=== PATIENT | female | born 1995 | race Two or more races ===

== ENCOUNTER 2024-12-18 13:04 | Outpatient (AMB) | payer MEDICAID, SELFPAY ==
--- NOTE | 2024-12-18 13:15 | AMB.OBINITIA ---
Vital Signs 12/18/24 13:19 Height 1.52 m Height Method Stated Weight 63.673 kg Weight Measurement Method Standing Scale BMI 27.3 BP 107/71 Blood Pressure Source Automatic Cuff Blood Pressure Location Left Upper Arm Position Sitting Respiration 14 Pulse 78 Pulse Source Monitor Temp 97.6 F Temp Source Oral Pulse Oximetry (%) 98 Oxygen Delivery Method Room Air Allergies/Home Meds Allergies & Medications Allergies No Known Allergies Allergy (Verified 12/18/24 13:20) Medication Reconciliation vit no.95-ferrous fumarate 28 mg-folic acid 800 mcg tablet () 1 tab PO QDAY 05/20/19 [History Confirmed 12/18/24] Intake Visit Data Collection New Patient or Established: Established Patient (seen at [facility] within 3 years) Reason for Visit:: CARE TRANSFER Seen by Clinical Staff ONLY (RN/MA): No Band Director Required: No Do You Feel Safe at Home: Yes Authorities Contacted: N/A PCP or OBGYN visit in last 3 months: Yes Hx Now: Yes Are you currently on any form of Control: No Last menstrual period: 06/26/24 Pain Present Currently: No Pain Scale Used: Sparrow-Hodges/Numerical Pain scale:: 0 Smoking Status Smoking Status: Former smoker Questionnaires Covid-19 Vaccine Questionnaire Has patient been vacinated for Covid-19 Have you been vacinated for Covid-19: No PHQ-9 PHQ-2 Over the last 2 weeks, how often have you been bothered by any of the following problems? 1. Little interest or pleasure in doing things: not at all 2. Feeling down, depressed, or hopeless: not at all Total score: 0 PHQ-9 3. Trouble falling or staying asleep, or sleeping too much: Not at all 4. Feeling tired or having little energy: Not at all 5. Poor appetite or overeating: Not at all 6. Feeling bad about yourself - or that you are a failure or have let yourself or your family down: Not at all 7. Trouble concentrating on things, such as reading the newspaper or watching television: Not at all 8. Moving or speaking so slowly that other people could have noticed? - Or the opposite - being so fidgety or restless that you have been moving around a lot more than usual: not at all 9. Thoughts that you would be better off or of hurting yourself in some way: Not at all Total score: 0 Source: Developed by Drs. Martin Cheatham, Jackie Roger, Quirino Gautam and colleagues, with an educational nicolas from [employer]. 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 at Home: Yes Past Medical History Past Medical History Have you ever been diagnosed with any of the following: Neurological Problems Cerebrovascular Accident (CVA): No Transient Ischemic Attacks (TIA): No Dementia: No Alzheimer's Disease: No Parkinson's Disease: No Seizures: No Cardiology Problems Myocardial Infarction: No Cardiac Arrhythmia: No Atrial Fibrillation: No Angina: No Heart Murmur: No Congestive Heart Failure: No Respiratory Problems Chronic Obstructive Pulmonary Disease (COPD): No Asthma: No Bronchitis: No Tuberculosis: No Hx Cough: No Cough: No Wheezing: No Chest Deformities: No Stomache/Intestinal Problems Liver Cancer: No Hepatitis: No Cirrhosis: No Pancreatic Cancer: No Crohn's Disease: No Obstructive Bowel: No Hiatal Hernia: No Genital/Urinary Problems Chronic Kidney Disease: No Renal Disease: No Kidney Stones: No Reproductive Problems Breast Cancer: No Endometriosis: No Fibroids: No Previous Pregnancies: Yes Syphilis: Yes Musculoskeletal Problems Muscular Dystrophy: No Myasthenia Gravis: No Marfan's Syndrome: No Bone Cancer: No Arthritis: No Head,Eye,Nose,Throat Problems Cataracts: No Glaucoma: No Blind: No Retinal Detachment: No Macular Degeneration: No Endocrine Problems Diabetes Mellitus Type 1: No Diabetes Mellitus Type 2: No Sunderland's Disease: No Blood Problems Anemia: No Leukemia: No Hemophilia: No Thalassemia: No Sickle Cell Disease: No Clotting Problems: No Psychologic Problems Depression: No Anxiety: No Behavior Problems: No Self-Mutilation: No Other Problems Hospitalization: Yes (LABOR ONLY) Down Syndrome: No Developmental Delay: No Falls: No Blood Transfusions: No Anesthesia Reactions: No Organ Transplant: No MRSA: No Chicken Pox: No Clostridium Difficile: No Cancer: No Surgical History Angioplasty: No Appendectomy: No Bariatric Surgery: No Breast Surgery: No Pacemaker: No History of Present Illness HPI Narrative 29-year-old 6 para 5 for first visit at [facility] OB clinic. Patient is been followed at [facility] for care so far. [facility]. Last menstrual period was June 30 2024. This gives a due date of April 04, 2025. Patient's first ultrasound was on September 30. She was 13 weeks 1 and this confirmed dates. Patient has a history of marijuana use with the . Patient also had a positive RPR with tPA positive her titer was 1-2. And patient has been treated with Bicillin 2.4 x 3. Partner was treated as well and patient has been compliant with safe sex practices. Patient is A+, antibody screen negative. HIV was negative. Hepatitis B was negative. Hep C negative. Gonorrhea and Chlamydia were negative. And patient's platelets were 350. Denies labor complaints at this time. And reports movement OB Initial Visit OB Flowsheet OB Flowsheet Initial Weight: Not Recorded Date <del>?</del> EGA Weight Edema CTX Effacement BP Fundal ht Pres Dilation Effacement Station Visit Note Alb Glu FHR Mov 12/18/24 <del>?</del> 24w 3d 63.673 kg absent absent 107/71 29-year-old 6 para 5 for first visit today at [facility] medical clinic. Patient is 24 weeks and 6 days by a 13-week ultrasound in September and . She has a follow-up MFM appointment January 10. Reports good movement. Denies symptoms of labor. No OB complaints at this time. She is taking her vitamins. Ordered third trimester labs. Keep appointment with MFM. Will call for sono results from [facility] increase fluids and labor precautions discussed 29-year-old 6 para 5 for first visit today at [facility] medical clinic. Patient is 24 weeks and 6 days by a 13-week ultrasound in September and . She has a follow-up MFM appointment January 10. Reports good movement. Denies symptoms of labor. No OB complaints at this time. She is taking her vitamins. Ordered third trimester labs. Keep appointment with MFM. Will call for sono results from [facility] increase fluids and labor precautions discussed, rpr with 3rd tri labs 151 active Menstrual History Menstrual reliability: definite Flow: normal Menstrual regularity: regular Monthly: Yes Age at menarche: 14 On control pills at conception: No Associated symptoms (LMP): Reports nausea, vomiting, fatigue and breast tenderness OB History : 6 Para: 4 Hx Total # of Abortions (Spontaneous & Elective): 1 # of Living Children: 4 Delivery History 1st : Child's name: MADIE date: 10/26/12 sex: male Gestational age at delivery (weeks): 41 Delivery type: vaginal Delivery complications: NO History of depression before or after : No 2nd : Child's name: VELIA date: 02/26/15 sex: male Gestational age at delivery (weeks): 39 Delivery type: vaginal Delivery complications: NO History of depression before or after : No 3rd : Child's name: MJ date: 08/30/17 sex: male Gestational age at delivery (weeks): 38 Delivery type: vaginal Delivery complications: NO History of depression before or after : No 4th : Child's name: BROOK date: 06/21/19 sex: male Gestational age at delivery (weeks): 38 Delivery type: vaginal Delivery complications: NO History of depression before or after : No Infection History & Risk Evaluation History of STDs: syphilis (patient and partner treated x 3) Genetic Screening & History Genetic Screening/Teratology Counseling - Includes patient, baby's father, or anyone in either family with: 1. Patient's age 35 years or older as of estimated date of delivery: No 2. Thalassemia (Thai, Iranian, Mediterranean, or Background); MCV less than 80: No 3. Neural Tube Defect (Meningomyelocele, Spina Bifida, or Anencephaly): No 4. Congenital Heart Defect: No 5. Down Syndrome: No 6. Jayy-Sachs (Ashkenazi Holiness, Cajun, Ecuadorean Lehr): No 7. Joesph Disease (Ashkenazi Holiness): No 8. Familial Dysautonomia (Ashkenazi Holiness): No 9. Sickle Cell Disease or Trait (): No 10. Hemophilia or other blood disorders: No 11. Muscular Dystrophy: No 12. Cystic Fibrosis: No 13. Yong's Chorea: No 14. Mental Retardation/Autism: No 15. Other inherited genetic or chromosomal disorder: No 16. Maternal Metabolic Disorder (EG,TYPE 1 Diabetes, PKU): No 17. Patient or baby's father had a child with defects not listed above: No 18. Recurrent loss or a stillbirth: No 19. Medications (including supplements, vitamins, herbs or otc drugs)/illicit/recreational drugs/alcohol since last menstrual period: No 20. Any other: No Infection History 1. Live with someone with TB or exposed to TB: No 2. Rash or viral illness since last menstrual period: No 3. Hepatitis B,C: No 4. History of STD: syphilis Other (see comments) Source: [employer] Review of Systems Review of Systems Systems Reviewed: All systems reviewed, normal except as documented Constitutional Constitutional: Reports fatigue Gastrointestinal Gastrointestinal: Reports nausea and Reports vomiting Endocrine Endocrine: Reports fatigue Exam General Limitations: no limitations General Appearance: alert, in no apparent distress, comfortable, cooperative, healthy appearing, well developed and well groomed Head Head exam: atraumatic, normocephalic and normal inspection Chest Chest inspection: Present normal inspection and symmetric chest wall rise Resp Respiratory exam: Present normal lung sounds bilaterally Card Cardiovascular exam: Present regular rate, normal rhythm and normal heart sounds Abdominal Abdominal exam: Present soft and normal bowel sounds Psych Psychiatric exam: Present normal affect and normal mood Results Objective Laboratory: urine dip negative protien, neg wbc, neg nitrites Assessment & Plan Diagnosis / Problem List (1) Encounter for supervision of other normal , second trimester: Status: Acute Plan Ordered third trimester labs and RPR. Continue vitamins. Discussed labor precautions. Keep appointment with maternal- medicine for January 10. Increase fluids. Discussed regular activity and diet. Return in 4 weeks OB check Additional Plan Follow Up: 4 Weeks (obc 4 week) Office Procedures OB Clinic LOC & Office Proc's Nursing/Assessment Patient Status: Established Patient OB Clinic Nursing Assessment: Medication Reconciliation, Update PMH in EMR and Vital Signs OB Clinic Coordination of Care: Complex Care and Chronic Disease 1-5, Consent,records obtained, informed consent, Education Simp Pt/Fam, Lab and Imaging orders, Results/Orders obtained and Staff clarify orders Special Needs: Heart tones Miscellaneous Interventions: Blood/Urine Collection Established Patient Charge Established Patient Point Assignment: 165 Established Patient Point Charge: EP Level 5 (160-above)
[2024-12-18 13:19] VITALS: BP 107/71; PULSE 78; RESP 14; TEMP 36.4; O2SAT 98; BMI 27.3
== END 2024-12-18 13:27 | disposition home or self-care (01) ==
LOC: HODSOBC 13:04
PROVIDERS: Supervising Provider Obstetrics & Gynecology; Visit Provider Advanced Practice Midwife
DX: O09.42 Supervision of pregnancy with grand multiparity, second trimester (principal); Z3A.24 24 weeks gestation of pregnancy; Z87.891 Personal history of nicotine dependence
CPT/HCPCS: 99214; 99215; G0463

== ENCOUNTER 2025-01-15 13:03 | Outpatient (AMB) | payer MEDICAID, SELFPAY ==
[2025-01-15 13:12] VITALS: BP 100/64; PULSE 85; RESP 16; TEMP 36.8; O2SAT 97; BMI 27.4
--- NOTE | 2025-01-15 13:12 | AMB.OBVISIT ---
Vital Signs 01/15/25 13:12 Height 1.52 m Height Method Stated Weight 63.503 kg Weight Measurement Method Standing Scale BMI 27.4 BP 100/64 Blood Pressure Source Automatic Cuff Blood Pressure Location Right Upper Arm Position Sitting Respiration 16 Pulse 85 Pulse Source Monitor Temp 98.2 F Temp Source Oral Pulse Oximetry (%) 97 Oxygen Delivery Method Room Air Allergies/Home Meds Allergies & Medications Allergies No Known Allergies Allergy (Verified 01/15/25 13:13) Medication Reconciliation vit no.95-ferrous fumarate 28 mg-folic acid 800 mcg tablet () 1 tab PO QDAY 05/20/19 [History Confirmed 01/15/25] Intake Visit Data Collection New Patient or Established: Established Patient (seen at [facility] within 3 years) Reason for Visit:: CARE Seen by Clinical Staff ONLY (RN/MA): No Dental Biller Required: No Do You Feel Safe at Home: Yes Authorities Contacted: N/A PCP or OBGYN visit in last 3 months: Yes Hx Now: Yes Are you currently on any form of Control: No Pain Present Currently: Yes Pain Location: Abdomen (LOWER ABDOMEN) Pain Scale Used: Sparrow-Hodges/Numerical Pain scale:: 7 Smoking Status Smoking Status: Former smoker Questionnaires Covid-19 Vaccine Questionnaire Has patient been vacinated for Covid-19 Have you been vacinated for Covid-19: No PHQ-9 PHQ-2 Over the last 2 weeks, how often have you been bothered by any of the following problems? 1. Little interest or pleasure in doing things: not at all 2. Feeling down, depressed, or hopeless: not at all Total score: 0 PHQ-9 3. Trouble falling or staying asleep, or sleeping too much: Not at all 4. Feeling tired or having little energy: Not at all 5. Poor appetite or overeating: Not at all 6. Feeling bad about yourself - or that you are a failure or have let yourself or your family down: Not at all 7. Trouble concentrating on things, such as reading the newspaper or watching television: Not at all 8. Moving or speaking so slowly that other people could have noticed? - Or the opposite - being so fidgety or restless that you have been moving around a lot more than usual: not at all 9. Thoughts that you would be better off or of hurting yourself in some way: Not at all Total score: 0 Source: Developed by Drs. Martin Cheatham, Jackie Roger, Quirino Gautam and colleagues, with an educational nicolas from [employer]. 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 at Home: Yes BRIM IRONER HAND: Past Medical History Past Medical History: No Hx Neurological Disorders, No Hx Breast Cancer, No Hx Cardiac Disorders, No Hx Cancer, No Hx Blood Disorders, No Hx Anemia, No Hx Gastrointestinal Disorders, No Hx Renal Disease, No Hx Diabetes Mellitus Type 1 and No Hx Diabetes Mellitus Type 2 Care OB Visit Log OB Flowsheet Initial Weight: Not Recorded Date <del>?</del> EGA Weight Edema CTX Effacement BP Fundal ht Pres Dilation Effacement Station Visit Note Alb Glu FHR Mov 12/18/24 <del>?</del> 24w 3d 63.673 kg absent absent 107/71 29-year-old 6 para 5 for first visit today at [facility] medical clinic. Patient is 24 weeks and 6 days by a 13-week ultrasound in September and . She has a follow-up MFM appointment January 10. Reports good movement. Denies symptoms of labor. No OB complaints at this time. She is taking her vitamins. Ordered third trimester labs. Keep appointment with MFM. Will call for sono results from [facility] increase fluids and labor precautions discussed 29-year-old 6 para 5 for first visit today at [facility] medical clinic. Patient is 24 weeks and 6 days by a 13-week ultrasound in September and . She has a follow-up MFM appointment January 10. Reports good movement. Denies symptoms of labor. No OB complaints at this time. She is taking her vitamins. Ordered third trimester labs. Keep appointment with MFM. Will call for sono results from [facility] increase fluids and labor precautions discussed, rpr with 3rd tri labs 151 active 05/14/25 <del>?</del> 28w 3d 63.503 kg absent absent 100/64 25 29 yo for OBC and f/u on mfm results. reports good movement. no c/o labor. tiki has not done 3rd tri labs, but will do them today. MFM sono 01/13 showed fetus frowing in 6th %. abdomen was over 10th%. Doppler study was not normal.f/u with MFM 02/17/25. patient was also schedule for 02/24. PLAN: keep MFM appointment 02/17 for dopplers, schedule bi week NST/BPP, get 3rd tri lab with RPR, discuss PTL precaution and fkc bid. continue PNV, schedule with OB for management 135 active BRO Calculator Estimated Delivery Date Method Current WG Current Estimate 04/06/25 Ultrasound #1 28w 3d Office Procedures OB Clinic LOC & Office Proc's Nursing/Assessment Patient Status: Established Patient OB Clinic Nursing Assessment: Medication Reconciliation, Update PMH in EMR and Vital Signs OB Clinic Coordination of Care: Complex Care and Chronic Disease 1-5, Consent,records obtained, informed consent, Education Simp Pt/Fam, Lab and Imaging orders, Results/Orders obtained and Staff clarify orders Special Needs: Heart tones Miscellaneous Interventions: Blood/Urine Collection Established Patient Charge Established Patient Point Assignment: 165 Established Patient Point Charge: EP Level 5 (160-above) Assessment & Plan Diagnosis / Problem List (1) Maternal care for other known or suspected poor growth, third trimester, not applicable or unspecified: Status: Acute (2) High risk case management patient in third trimester: Status: Acute Plan fkc bid, continue PNV, increase fluid, start bi-weekly nst/bpp. keep MFM appointment for 02/17/25 dopplers, 3rd tri labs today. f/u with OB 2 week for medical magement/OBC Additional Plan Follow Up: 2 Weeks (obc)
[2025-01-15 16:31] LABS: Bilirubin,Urine Clinitek Negative (Negative); Blood,Urine Clinitek Negative (Negative); Glucose, Urine Clinitek Negative (Negative); Ketones,Urine Clinitek Negative (Negative); Leukocyte Esterase,Urine Clin 1+ (Negative); Nitrite,Urine Clinitek Negative (Negative); Protein,Urine Clinitek 1+ (Neg - Trace)
== END 2025-01-15 14:00 | disposition home or self-care (01) ==
LOC: HODSOBC 13:03
PROVIDERS: Supervising Provider Advanced Practice Midwife; Visit Provider Advanced Practice Midwife
DX: O09.43 Supervision of pregnancy with grand multiparity, third trimester (principal); O09.893 Supervision of other high risk pregnancies, third trimester; O36.5930 Maternal care for other known or suspected poor fetal growth, third trimester, not applicable or unspecified; Z3A.28 28 weeks gestation of pregnancy; Z87.891 Personal history of nicotine dependence
CPT/HCPCS: 81001; 99215; G0463

== ENCOUNTER → 2025-01-15 | Outpatient (CLI) | payer MEDICAID, SELFPAY ==
[2025-01-15 16:47] LABS: Basophils % (Auto) 0 % (0-2.5); Eosinophils # (Auto) 0.2 Thou/mm3 (0.0-0.5); Eosinophils % (Auto) 2 % (0-10); Hematocrit 34.4 % (36.0-46.0); Hemoglobin 12.2 g/dL (12.0-16.0); Immature Granulocytes % (Auto) 1 % (0-0); Immature Granulocytes Auto 0.09 Thou/mm3 (0.00-0.00); Lymphocytes # (Auto) 1.8 Thou/mm3 (1.0-4.8); Lymphocytes % (Auto) 17 % (10-50); Mean Corpuscular HGB Conc 35.5 g/dl (31.0-37.0); Mean Corpuscular Hemoglobin 31.8 pg (25.0-35.0); Mean Corpuscular Volume 90 fL (80-100); Monocytes # (Auto) 0.8 Thou/mm3 (0.0-0.8); Monocytes % (Auto) 7 % (0-12); Neutrophils % (Auto) 73 % (37-80); Nucleated Red Blood Cell % 0 /100 WBC (0); Platelet Count 283 Thou/mm3 (140-440); RDW Standard Deviation 42.2 fL (36.4-46.3); Red Blood Count 3.84 Miln/mm3 (4.00-5.20); White Blood Count 10.9 Thou/mm3 (3.6-11.0)
[2025-01-15 16:56] LABS: Glucose,1 Hour PP 50gm Dose 125 mg/dL (80-140)
[2025-01-15 17:06] LABS: Glucose Estimated Average 80 mg/dL (80-131); Hemoglobin A1C 4.4 % Hgb (4.8-6.0)
[2025-01-15 17:19] LABS: Syphilis Reactive (Nonreactive)
[2025-01-15 17:20] LABS: MHATP/TP-PA* See Sep Rpt
== END | disposition home or self-care (01) ==
LOC: COPL 13:50
PROVIDERS: PCP Family Medicine; Referring Provider Advanced Practice Midwife; Visit Provider Advanced Practice Midwife
DX: O24.410 Gestational diabetes mellitus in pregnancy, diet controlled (principal)
CPT/HCPCS: 36415; 82950; 83036; 85025; 86780

== ENCOUNTER 2025-01-20 09:25 | Outpatient (RCR) | payer MEDICAID, SELFPAY ==
--- NOTE | 2025-01-20 09:43 | XR_ITS ---
Examination: Biophysical profile, ultrasound Date and time of exam: January 20, 2025 0955 hours INDICATIONS: High risk , diagnosis poor growth Technique: Multiple transabdominal sonographic images of the pelvis abdomen obtained. Attention is directed to the breathing movement, gross body movement, amniotic fluid volume and tone. Findings: Amniotic fluid index 8.8 cm Total biophysical profile is 8 of 8. breathing movement is 2. Gross body movement is 2. tone is 2. Qualitative amniotic fluid volume is 2 Impression: Biophysical profile is 8 of 8.
[2025-01-20 10:55] VITALS: BP 110/59; PULSE 80; RESP 16; TEMP 36.7
== END 2025-01-20 23:59 | disposition home or self-care (01) ==
LOC: S4S1 09:25
PROVIDERS: Referring Provider Advanced Practice Midwife; Visit Provider Advanced Practice Midwife
DX: O09.93 Supervision of high risk pregnancy, unspecified, third trimester (principal); O36.5930 Maternal care for other known or suspected poor fetal growth, third trimester, not applicable or unspecified; Z3A.29 29 weeks gestation of pregnancy
CPT/HCPCS: 59025; 76819

== ENCOUNTER 2025-01-29 08:59 | Outpatient (AMB) | payer MEDICAID, SELFPAY ==
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
[2025-01-29 09:21] VITALS: BP 107/69; PULSE 75; RESP 15; TEMP 36.4; O2SAT 99; BMI 27.9
== END 2025-01-29 09:38 | disposition home or self-care (01) ==
LOC: HODSOBC 08:59
PROVIDERS: Supervising Provider Advanced Practice Midwife; Visit Provider Advanced Practice Midwife
DX: O09.43 Supervision of pregnancy with grand multiparity, third trimester (principal); O09.893 Supervision of other high risk pregnancies, third trimester; O36.5930 Maternal care for other known or suspected poor fetal growth, third trimester, not applicable or unspecified; Z3A.30 30 weeks gestation of pregnancy; Z23 Encounter for immunization
CPT/HCPCS: 90471; 90715; 99214; G0463

== ENCOUNTER 2025-02-13 09:53 | Outpatient (AMB) | payer MEDICAID, SELFPAY ==
[2025-02-13 10:16] VITALS: BP 109/72; PULSE 84; RESP 17; TEMP 36.7; O2SAT 98; BMI 28.2
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
== END 2025-02-13 10:52 | disposition home or self-care (01) ==
LOC: HODSOBC 09:53
PROVIDERS: Supervising Provider Advanced Practice Midwife; Visit Provider Advanced Practice Midwife
DX: O09.893 Supervision of other high risk pregnancies, third trimester (principal); O36.5930 Maternal care for other known or suspected poor fetal growth, third trimester, not applicable or unspecified; Z3A.32 32 weeks gestation of pregnancy; Z87.891 Personal history of nicotine dependence
CPT/HCPCS: 99213; G0463

== ENCOUNTER 2025-02-17 04:04 | Observation (INO) | payer MEDICAID, SELFPAY ==
[2025-02-17] VITALS (23 sets, daily range): BP systolic 121; BP diastolic 75; PULSE 75–104; RESP 18; TEMP 36.3; O2SAT 88–100; BMI 28.5
[2025-02-17 05:22] LABS: ROM Kit Lot # 578010271; ROM Swab Mixed By: DURAJ; Rupture of Fetal Membranes Negative (Negative); Swb Mxed in Solvent 1 min? Yes
[2025-02-17 05:46] LABS: FFN Specimen Descripton Other
[2025-02-17 05:47] LABS: Fetal Fibronectin Negative (Negative)
[2025-02-17 06:23] LABS: Collection Type, Urine Clean Catch
[2025-02-17] MEDS: guaiFENesin/DM 10 ML UDC PO (06:23)
[2025-02-17] MEDS: AZITHROMYCIN 250 MG TABLET 500 MG PO (06:24)
[2025-02-17 06:58] LABS: Bacteria,Urine 1+; Bilirubin,Urine Negative (Negative); Blood,Urine 1+ (Negative); Clarity,Urine Clear (Clear/Hazy); Color,Urine Yellow (Lt Yel-Yel); Glucose, Urine Negative (Negative); Ketones,Urine Negative (Negative); Leukocyte Esterase,Urine Positive (Negative); Nitrite,Urine Negative (Negative); PH,Urine 6.5 (5.0-7.0); Protein,Urine Negative (Neg - Trace); RBC,Urine 26 /hpf (0-3); Specific Gravity,Urine 1.018 (1.001-1.035); Squamous Epithelial Cell,Urine 4 /hpf (0-5); WBC,Urine 4 /hpf (0-5)
[2025-02-17 07:15] LABS: Culture Indicated,Urine Yes
== END 2025-02-17 07:05 | disposition home or self-care (01) ==
PROVIDERS: Admitting Provider Advanced Practice Midwife; Visit Provider Specialist
DX: O47.03 False labor before 37 completed weeks of gestation, third trimester (principal); Z3A.33 33 weeks gestation of pregnancy; O26.893 Other specified pregnancy related conditions, third trimester; R06.02 Shortness of breath; R05.9 Cough, unspecified
CPT/HCPCS: 59025; 59899; 81001; 82731; 84112; 87077; 87086; 87186; G0378; A9270

== ENCOUNTER 2025-02-20 10:04 | Outpatient (AMB) | payer MEDICAID, SELFPAY ==
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
[2025-02-20 10:35] VITALS: BP 111/76; RESP 17; TEMP 36.5; O2SAT 98
== END 2025-02-20 10:24 | disposition home or self-care (01) ==
LOC: HODSOBC 10:04
PROVIDERS: Supervising Provider Advanced Practice Midwife; Visit Provider Advanced Practice Midwife
DX: O09.893 Supervision of other high risk pregnancies, third trimester (principal); O36.5930 Maternal care for other known or suspected poor fetal growth, third trimester, not applicable or unspecified; Z3A.33 33 weeks gestation of pregnancy; O23.43 Unspecified infection of urinary tract in pregnancy, third trimester; N39.0 Urinary tract infection, site not specified; Z87.891 Personal history of nicotine dependence
CPT/HCPCS: 99213; G0463

== ENCOUNTER 2025-03-03 15:35 | Outpatient (AMB) | payer MEDICAID, SELFPAY ==
[2025-03-03 15:46] VITALS: BP 105/67; PULSE 82; RESP 17; TEMP 36.8; O2SAT 98; BMI 28.3
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
== END 2025-03-03 15:57 | disposition home or self-care (01) ==
LOC: HODSOBC 15:35
PROVIDERS: Supervising Provider Obstetrics & Gynecology; Visit Provider Obstetrics & Gynecology
DX: O09.893 Supervision of other high risk pregnancies, third trimester (principal); O36.5930 Maternal care for other known or suspected poor fetal growth, third trimester, not applicable or unspecified; O98.113 Syphilis complicating pregnancy, third trimester; A53.0 Latent syphilis, unspecified as early or late; Z3A.35 35 weeks gestation of pregnancy; Z87.891 Personal history of nicotine dependence
CPT/HCPCS: 99213; G0463

== ENCOUNTER 2025-03-12 14:37 | Outpatient (AMB) | payer MEDICAID, SELFPAY ==
[2025-03-12 14:44] VITALS: BP 122/79; PULSE 74; RESP 18; TEMP 36.7; O2SAT 98; BMI 28.9
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
== END 2025-03-12 15:07 | disposition home or self-care (01) ==
LOC: HODSOBC 14:37
PROVIDERS: Supervising Provider Advanced Practice Midwife; Visit Provider Advanced Practice Midwife
DX: O09.893 Supervision of other high risk pregnancies, third trimester (principal); O36.5930 Maternal care for other known or suspected poor fetal growth, third trimester, not applicable or unspecified; Z3A.37 37 weeks gestation of pregnancy; Z36.85 Encounter for antenatal screening for Streptococcus B; Z87.891 Personal history of nicotine dependence; Z91.199 Patient's noncompliance with other medical treatment and regimen due to unspecified reason
CPT/HCPCS: 99214; G0463

== ENCOUNTER 2025-03-12 16:32 | Outpatient (CLI) | payer MEDICAID, SELFPAY ==
--- NOTE | 2025-03-12 16:36 | XR_ITS ---
Examination: Biophysical profile, ultrasound Date and time of exam: March 12, 2025, 1728 hours. INDICATIONS: Poor care. Technique: Multiple transabdominal sonographic images of the pelvis abdomen obtained. Attention is directed to the breathing movement, gross body movement, amniotic fluid volume and tone. Findings: Amniotic fluid index 7.8 cm Total biophysical profile is 8 of 8. breathing movement is 2. Gross body movement is 2. tone is 2. Qualitative amniotic fluid volume is 2 Impression: Biophysical profile is 8 of 8.
--- NOTE | 2025-03-12 16:37 | XR_ITS ---
Examination: Complete OB ultrasound greater than 14 weeks Date and time of exam: March 12, 2025, 1709 hours INDICATIONS: Poor care Findings: Viable intrauterine single fetus with single amniotic sac presentation cephalic. Cardiac motion 133 BPM. Placenta posterior grade 2. Umbilical cord insertion 3 vessel seen. Amniotic fluid index 8.7 cm. Cervix 3.0 cm. spine maternal left. Ovaries obscured by bowel gas. . Composite estimated gestational age based on BPD, head circumference, abdominal circumference, femur length is 33 weeks 2 days. Estimated weight 2203 g. Survey of intracranial anatomy, spinal anatomy, abdominal anatomy, four-chamber heart performed with no abnormalities identified. Impression: Viable intrauterine gestation cephalic presentation..
[2025-03-12 16:40] VITALS: BMI 28.8
[2025-03-12 16:45] VITALS: BP 107/58; PULSE 88; RESP 16; TEMP 36.4; O2SAT 98
[2025-03-12 16:47] VITALS: BP 107/58; PULSE 88; RESP 16; RESP 98; TEMP 36.4
--- NOTE | 2025-03-12 17:52 | PD.LDPN ---
Documentation for date of: 03/12/25 OB Labor Progress Note CNM Management Details of MD consultation: Called by [facility] representatives [place] and notified that upon her assessment, Elizabeth Jennings CNM examined patient and determined that she is actually breech. I arrived immediately and performed a bedside ultrasound confirming breech presentation. I explained to the patient the nature of her condition and the recommendation to proceed with an emergent delivery. I made her aware of the risks, complications, alternatives and benefits of the proposed procedure and she agrees. She said that she desires future fertility.
--- NOTE | 2025-03-12 18:00 | PD.LDDS ---
DS: Providers Provider Primary care physician: Physician No Primary/Family Attending Provider on Admission: Elizabeth Jennings CNM Attending Provider on DC: Basim Wilson MD Discharging Provider: Basim Wilson MD Summary/Hosp Course Time Spent with Patient Time attestation: Total time spent providing and/or coordinating discharge services: Exam Vital Signs Temp Pulse Resp BP Pulse Ox 97.6 F 88 16 107/58 L 98 03/12/25 16:47 03/12/25 16:47 03/12/25 16:47 03/12/25 16:47 03/12/25 16:45 Discharge Plan Plan Patient Disposition: HOME (Self Care) Patient condition on transfer: Stable Prescriptions/Referrals Prescriptions/Med Rec: New hydrocodone-acetaminophen 5-325 mg tablet 1 tab PO Q6H MDD 4 PRN (Reason: pain) Qty: 20 0RF ibuprofen 800 mg tablet 800 mg PO Q6H PRN (Reason: pain) Qty: 30 0RF No Action ursodiol 200 mg capsule 200 mg PO BID Qty: 30 1RF PNV cmb#95-ferrous fumarate-FA [] 28 mg iron- 800 mcg Tablet 1 tab PO QDAY Referrals: No Primary/Family,Physician [Primary Care Provider] - Patient/Caregiver Discharge Instructions Discharge Activity: activity as tolerated Other Discharge Activity Instructions:: Follow up at [facility] in 1 week. Print Language: [place] Stand Alone Forms: Patient Portal Info Letter Planned Discharge Date 03/14/25
--- NOTE | 2025-03-12 18:00 | PD.GYNPROC ---
Operative Note - HARMONIC ANALYST Procedure Procedure description: After proper informed consent was obtained and the patient was made aware of the risks, complications, alternatives and benefits of the proposed procedure she was taken to the operating room where she underwent induction of spinal anesthesia. She was prepped and draped in the usual sterile fashion. A timeout was performed.? A Pfannenstiel skin incision was made with the scalpel and carried through to the underlying layer of fascia with the Bovie. The fascia was nicked in the midline incision and the incision was extended bilaterally with the Bovie. The inferior aspect of the fascial incision was grasped with Davonte clamps elevated and the underlying rectus muscle dissected off with the Bovie. The superior aspect the fascial incision was grasped with Davonte clamps elevated and the underlying rectus muscle dissected off with the Bovie. The rectus muscles were in the midline. The peritoneum was grasped between 2 Caro clamps and entered sharply with the Metzenbaum scissors. The peritoneum was extended superiorly and inferiorly with good visualization of the bladder. The vesicouterine peritoneum was incised transversely and the bladder flap created digitally. A Boulder blade was inserted. A low transverse incision was made in the uterus with a scapel and the incision was extended digitally. The infant's feet, legs and hips delivered and the anterior and posterior shoulder delivered then the head kept in the gently flexed position was delivered atraumatically. The mouth and nose were suctioned with the bulb suction. The cord was clamped after 30 second delayed cord clamping and the cord was cut.? The was handed off to the waiting Pediatric staff, cord blood was collected for lab testing. The placenta was removed complete and intact. The uterus was exteriorized and cleared of all clots and debris. The uterine incision was closed with #1-0 chromic catgut suture in a running interlocking fashion. A second layer of the same suture was used to imbricate the first layer and obtain excellent hemostasis. The vesicouterine peritoneum was closed with 2-0 chromic catgut suture in a running fashion. The firm uterus was returned to the abdomen. The gutters were cleared of all clots and debris. The peritoneum was closed with 0 chromic catgut suture in running fashion. The rectus muscle was closed with 0 chromic catgut suture. The fascia was closed with 0 Vicryl beginning at each angle and ending in the center in a running fashion. The subcutaneous tissue was irrigated with warmed normal saline solution and found to be hemostatic. The subcutaneous tissue was closed with 2-0 chromic catgut suture in a running fashion. The skin was closed with 4-0 Monocryl. A Dermabond Prineo dressing was applied and a sterile pressure dressing was applied.? She tolerated the procedure well. Counts were correct. I discussed with the patient the nature of her condition, intraoperative findings and expectation for recovery all? questions answered.
[2025-03-12 18:48] LABS: Alanine Aminotransferase < 7 U/L (10-49); Albumin, Serum 3.8 gm/dL (3.5-5.0); Albumin/Globulin Ratio 1.5 (1.2-2.2); Alkaline Phosphatase 90 U/L (46-116); Anion Gap 10 (7-16); Aspartate Amino Transferase 12 U/L (0-34); BUN/Creatinine Ratio 13 Ratio (12-20); Bilirubin,Total 0.4 mg/dL (0.3-1.2); Blood Urea Nitrogen < 5 mg/dL (9-23); Calcium 9.6 mg/dL (8.3-10.6); Calcium (Corrected) 9.8 mg/dL (8.5-10.1); Carbon Dioxide 20.9 mMol/L (20.0-31.0); Chloride 106 mMol/L (98-107); Creatinine (Component) 0.4 mg/dL (0.6-1.3); Estimated Creatinine Clearance 177.1 mL/min (>60); Globulin 2.6 gm/dL (2.3-3.5); Glucose 84 mg/dL (74-106); Osmolality,Calculated 270 (275-295); Potassium 3.6 mMol/L (3.4-5.1); Sodium 137 mMol/L (136-145); Total Protein 6.4 gm/dL (5.7-8.2); eGFR > 60 See Note
[2025-03-12 18:53] VITALS: BP 108/61; PULSE 82; RESP 18; TEMP 36.5
== END 2025-03-12 19:30 | disposition home or self-care (01) ==
LOC: S4S1 16:32 → S4SX 16:33
PROVIDERS: Referring Provider Specialist; Visit Provider Advanced Practice Midwife
DX: O09.33 Supervision of pregnancy with insufficient antenatal care, third trimester (principal); Z3A.33 33 weeks gestation of pregnancy
CPT/HCPCS: 36415; 59025; 76805; 76819; 80053; 83789

== ENCOUNTER 2025-03-15 08:25 | Inpatient (IN) | payer MEDICAID, SELFPAY ==
[2025-03-15] VITALS (108 sets, daily range): BP systolic 84–125; BP diastolic 43–86; PULSE 70–97; RESP 16–99; TEMP 36.6–36.9; O2SAT 91–100; BMI 26.2
--- NOTE | 2025-03-15 08:44 | XR_ITS ---
Examination: age Limited Technique: Limited transabdominal sonographic images pelvis Date and time: March 15, 2025, 0854 hrs. Indications: Onset pelvic contractions and leaking amniotic fluid beginning 5 hours ago. Findings: Viable intrauterine gestation cephalic presentation. spine maternal left. Cardiac motion 137 BPM. Amniotic fluid index 7.8 cm Impression: Viable intrauterine gestation cephalic presentation
[2025-03-15 09:28] LABS: ROM Kit Exp Date# 11152027; ROM Kit Lot # 58102387; ROM Swab Mixed By: SAUCT; Rupture of Fetal Membranes Negative (Negative); Swb Mxed in Solvent 1 min? Yes
[2025-03-15 11:51] LABS: Basophils # (Auto) 0.0 Thou/mm3 (0.0-0.2); Basophils % (Auto) 0 % (0-2.5); Eosinophils # (Auto) 0.3 Thou/mm3 (0.0-0.5); Eosinophils % (Auto) 3 % (0-10); Hematocrit 32.9 % (36.0-46.0); Hemoglobin 11.4 g/dL (12.0-16.0); Immature Granulocytes Auto 0.09 Thou/mm3 (0.00-0.00); Lymphocytes # (Auto) 1.6 Thou/mm3 (1.0-4.8); Lymphocytes % (Auto) 16 % (10-50); Mean Corpuscular HGB Conc 34.7 g/dl (31.0-37.0); Mean Corpuscular Hemoglobin 30.9 pg (25.0-35.0); Mean Corpuscular Volume 89 fL (80-100); Monocytes # (Auto) 1.2 Thou/mm3 (0.0-0.8); Monocytes % (Auto) 12 % (0-12); Neutrophils # (Auto) 7.2 Thou/mm3 (1.8-7.7); Neutrophils % (Auto) 69 % (37-80); Nucleated Red Blood Cell # 0.00 Thou/mm3 (0.00-0.00); Nucleated Red Blood Cell % 0 /100 WBC (0); Platelet Count 252 Thou/mm3 (140-440); RDW Standard Deviation 40.2 fL (36.4-46.3); Red Blood Count 3.69 Miln/mm3 (4.00-5.20); White Blood Count 10.4 Thou/mm3 (3.6-11.0)
[2025-03-15 12:37] LABS: Syphilis Reactive (Nonreactive)
[2025-03-15 12:38] LABS: MHATP/TP-PA* See Sep Rpt
[2025-03-15 14:56] LABS: Amphetamine/Metham Scrn,Ur OB Negative (Negative); Benzoylecgonine Screen, Ur OB Negative (Negative); Opiate Screen,Urine OB Negative (Negative); THC Screen,Urine OB Negative (Negative)
[2025-03-15] MEDS: RINGERS LACTATED 1000 ML 1,000 ML 100 ML IV ×3 (18:22→21:27)
[2025-03-15] MEDS: fentaNYL CIT INJ 50 mCg/ML AMP 2ML 100 MCG IVP (18:27)
[2025-03-15] MEDS: OXYTOCIN in NS 30 units 30 UNIT/500 ML BAG IV (21:47)
[2025-03-16] VITALS (65 sets, daily range): BP systolic 92–127; BP diastolic 52–76; PULSE 68–93; RESP 15–18; TEMP 36.7–37; O2SAT 91–100
[2025-03-16] MEDS: OXYTOCIN INJ 10 UNIT/ML VIAL IM (01:40)
[2025-03-16] MEDS: OXYTOCIN in NS 20 units 20 UNIT/1,000 ML BAG 125 UNIT IV (01:42)
[2025-03-16] MEDS: TRANEXAMIC ACID 1,000 MG IVPB 1,000 MG/100 ML BAG 200 MG IV (01:46)
[2025-03-16] MEDS: BENZO/LANO/ALOE (Dermoplast) 60 GM CAN 1 SPRAY TOP ×2 (01:59→18:59)
--- NOTE | 2025-03-16 02:39 | PD.LDHP ---
Documentation for date of: 03/16/25 OB Labor/Induct. HPI History of Present Illness Chief complaint: induction : 6 Para: 4 Term pregnancies: 4 pregnancies: 0 Living children: 0 History of Abortions: Spontaneous and Elective: 0 History of Vaginal deliveries: 4 History of sections: No History of : No Date of last menstrual period: 06/26/24 BRO: 04/02/25 Gestational Age (weeks): 37 Gestational Age (days): 4 Gestational age based on last menstrual period: 37 History of present illness: 30-year-old 6 para 4 admit to labor and delivery for induction of labor at 37 weeks. Patient has a history intrauterine growth restriction with this . Baby has been consistently growing in the 6 percentile. In the last visit PATRICIA was less than 8. Patient also has had complaints of itching palms of hands and feet. Liver enzymes were normal. Bile acids are pending. Patient was started on ursodiol 300 twice daily. History of positive RPR with this . In August the titer was 1-26. Patient received 3 doses of Bicillin 2.4 weekly. 3-month repeat RPR the titer came down 1-2 with tPA positive. Partner was treated per as well per patient patient has been followed at [facility] with Doppler studies and biweekly NST BPP patient had poor compliance with weekly MFM visits and OB checks as well. Denies social habits at this time. Patient's not had several surgeries. She has no chronic illness. Patient is A+, antibody screen negative, rubella immune, hepatitis B negative HIV negative hep C negative. Her U tox was positive for marijuana. 1 hour was normal. And GBS negative. Last. June 26, 2024. Estimated due date April 02, 2025. Patient had a 13-week ultrasound in September that confirmed dates. Anatomy scans showed normal anatomy History of Present Dating criteria: LMP confirmed by 1st trimester US Adequate Care: Yes Ultrasounds: normal 1st trimester US and normal mid trimester US Obstetrical complications: none Medical complications: none Labs Labs: Positive: RPR and Rubella Titre, Negative: Hepatitis B, HIV, Chlamydia and Gonorrhea and Unknown: Herpes Type 1, Herpes Type 2 and Covid-19 Review of Systems Review of Systems Systems Reviewed: All systems reviewed, normal except as documented Past Medical History Surgical History SURGICAL: Negative Section Meds Home Medications and Allergies Home Medications ?Medication ?Instructions ?Recorded ?Confirmed ?Type vit no.95-ferrous 1 tab PO QDAY 05/20/19 03/15/25 History fumarate 28 mg-folic acid 800 mcg tablet () Allergies Allergy/AdvReac Type Severity Reaction Status Date / Time No Known Allergies Allergy Verified 03/15/25 12:43 OB Exam Physical Exam Vital signs: Temp Pulse Resp BP Pulse Ox O2 Del Method 98.4 F 69 20 107/62 100 Room Air 03/15/25 18:15 03/16/25 02:25 03/15/25 18:15 03/16/25 02:25 03/16/25 02:38 03/15/25 18:15 Narrative: Alert and oriented. Normal heart rate and rhythm. Lungs clear no wheezes. Gravid abdomen. Gynecoid pelvis. AmniSure was negative. Vaginal exam on admission was long, 1, posterior. -3. And soft. Vertex presentation. heart rate was category 1 with accelerations and moderate variability. PATRICIA was 5.8. Bag water intact. Detailed Labor and Delivery Exam Dilation (cm): 1 Effacement (%): thick Cervix position: posterior station: -3 Consistency: soft Presentation: Vertex Cervical ripeness score: 3 Membranes: intact Baseline heart rate: 145 monitor accelerations: 15x15 monitor decelerations: None roasterman variability: Moderate (11-25) Contraction frequency (min): irreg Contraction duration (sec): 30 Tachysystole: No Contraction intensity: Mild OB Results Labs 03/15/25 11:20 Labs: Short CBC 03/15/25 Range/Units 11:20 WBC 10.4 (3.6-11.0) Thou/mm3 Hgb 11.4 L (12.0-16.0) g/dL Hct 32.9 L (36.0-46.0) % Plt Count 252 (140-440) Thou/mm3 OB Assessment & Plan Additional Plan Induction method: per misoprostol protocol Plan: induction, anticipate NVD and consult MD guzman
--- NOTE | 2025-03-16 02:46 | PD.LDDELS ---
Data ([facility]) Data Hx Section: No : 6 Term: 4 : 0 Livin Abortions: Spontaneous & Theraputic: 0 Delivery Data ([facility]) Labor Data Initiation of labor: Induction Induction/Augmentation Agent: Cervidil, Pitocin and Artificial ROM ROM date: 03/16/25 ROM time: 01:30 Amniotic membrane rupture type: Artificial Amniotic fluid description: Clear Delivery Data EDC: 04/02/25 EDC calculated by:: LMP/early US confirmation Date of arrival to unit: 03/15/25 Time of arrival to unit: 08:25 Onset of labor date: 03/15/25 Onset of labor time: 17:55 Complete dilation date: 03/16/25 Complete dilation time: 01:30 [place] delivery date: 03/16/25 [place] delivery time: 01:36 Gestational age (weeks): 37 Gestational age (days): 0 Placenta delivery date: 03/16/25 Placenta delivery time: 01:45 Stage 1 total time: Labor - Stage 1 Duration 7 hours and 35 minutes Delivered by: Elizabeth Jennings Delivery nurse: LOKI RUTLEDGE [place] nurse: PAUL RUTLEDGE Support person(s) at delivery: KRISTYB, Other staff at delivery: MILADIS RUTLEDGE Delivery Method Delivery method: Normal Vaginal Delivery Presentation: Vertex position: OA Anesthesia Type Anesthesia Type: Epidural Anesthesia type: Epidural Delivery Room Medications Delivery room medications given: fentanyl Delivery room medications: Pitocin 10 u IM, Pitocin 20 u IV, Cytotec 800 OR and other (TXA) Placenta Placenta delivery description: Spontaneous Cord blood sent to lab: Yes cord blood collection: Cord Blood Type Episiotomy Episiotomy description: None Lacerations #1: Vaginal: 1st degree (scratches/no repair) EBL Estimated blood loss (ml): 400 Umbilical Cord cord description: 3 Vessels [place] Data ([facility]ick) [place] Data 's gender: Female weight (gms): 2405 g Weight (pounds): 5 lbs and 4.8 ozs 1 minute: 8 5 minutes: 9
[2025-03-16] MEDS: IBUPROFEN TAB 400 MG TABLET 800 MG PO ×2 (05:44→15:05)
[2025-03-16] MEDS: DOCUSATE SOD 100 MG CAPSULE PO (08:19)
[2025-03-16 12:46] LABS: Basophils # (Auto) 0.0 Thou/mm3 (0.0-0.2); Basophils % (Auto) 0 % (0-2.5); Eosinophils # (Auto) 0.1 Thou/mm3 (0.0-0.5); Eosinophils % (Auto) 1 % (0-10); Hematocrit 28.0 % (36.0-46.0); Hemoglobin 9.8 g/dL (12.0-16.0); Immature Granulocytes Auto 0.08 Thou/mm3 (0.00-0.00); Lymphocytes # (Auto) 1.7 Thou/mm3 (1.0-4.8); Lymphocytes % (Auto) 13 % (10-50); Mean Corpuscular HGB Conc 35.0 g/dl (31.0-37.0); Mean Corpuscular Hemoglobin 30.6 pg (25.0-35.0); Mean Corpuscular Volume 88 fL (80-100); Monocytes # (Auto) 1.5 Thou/mm3 (0.0-0.8); Monocytes % (Auto) 11 % (0-12); Neutrophils # (Auto) 9.4 Thou/mm3 (1.8-7.7); Neutrophils % (Auto) 74 % (37-80); Nucleated Red Blood Cell # 0.00 Thou/mm3 (0.00-0.00); Nucleated Red Blood Cell % 0 /100 WBC (0); Platelet Count 221 Thou/mm3 (140-440); RDW Standard Deviation 40.4 fL (36.4-46.3); Red Blood Count 3.20 Miln/mm3 (4.00-5.20); White Blood Count 12.8 Thou/mm3 (3.6-11.0)
[2025-03-17] VITALS: BP 108/66; PULSE 63; RESP 18; TEMP 36.7; O2SAT 97
[2025-03-17 03:45] VITALS: BP 106/66; PULSE 67; RESP 16; TEMP 36.9; O2SAT 98
[2025-03-17 07:40] VITALS: BP 104/60; PULSE 65; RESP 16; TEMP 36.7; O2SAT 98
--- NOTE | 2025-03-17 08:18 | ESPR_ITS ---
Subjective Subjective Interval history: No complaints of pain. Bonding with baby. Exam Vital Signs Temp Pulse Resp BP Pulse Ox O2 Del Method 98.4 F 67 16 106/66 98 Room Air 03/17/25 03:45 03/17/25 03:45 03/17/25 03:45 03/17/25 03:45 03/17/25 03:45 03/17/25 03:45 Narrative Exam Vital signs are stable afebrile. Pressure soft. Fundus firm below umbilicus. Perineum is intact no lacerations. Small lochia. Uterus well involuted. 2+ DTRs noted negative Homans' sign. No edema. Objective Labs 03/16/25 12:00 Labs: Laboratory Results - last 24 hr 03/15/25 03/16/25 09:50 12:00 WBC 12.8 H RBC 3.20 L Hgb 9.8 L Hct 28.0 L MCV 88 MCH 30.6 MCHC 35.0 RDW Std Deviation 40.4 Plt Count 221 D Neut % (Auto) 74 Lymph % (Auto) 13 [place] % (Auto) 11 Eos % (Auto) 1 Baso % (Auto) 0 Neut # (Auto) 9.4 H Lymph # (Auto) 1.7 [place] # (Auto) 1.5 H Eos # (Auto) 0.1 Baso # (Auto) 0.0 Immature Gran # (Auto) 0.08 H Absolute Nucleated RBC 0.00 Immature Gran % 1 H Nucleated RBC % 0 C. glabrata (PCR) Cancelled C. krusei (PCR) Cancelled Tiffani species DNA Cancelled Trichomonas DNA Probe Cancelled Bact vaginosis (PCR) Cancelled Assessment & Plan Problem List (1) Anemia of mother, with delivery, with complication: Status: Acute Plan Comment Plan Comment: Discharge home with baby. Okay to board until RPR results are back. Patient will continue vitamins and iron. No sex. Increase fluids and rest. Patient can take Tylenol or ibuprofen for pain. Return in 3 weeks visit Time Spent With Patient Time: Total time spent is greater than 50% in coordination of care (as documented) at patient's floor/unit and/or counseling patient:
--- NOTE | 2025-03-17 08:21 | ESDS_ITS ---
DS: Providers Provider Date of admission: 03/15/25 10:36 Primary care physician: Physician No Primary/Family Admitting Provider: Elizabeth Jennings CNM Attending Provider on Admission: Elizabeth Jennings CNM Consults: 03/16/25 03:00 Referral Routine Comment: Attending Provider on DC: Elizabeth Jennings CNM Discharging Provider: Elizabeth Jennings CNM DS: Diagnosis Problem List Completed Was Problem List Reviewed/Reconciled?: Yes Summary/Hosp Course Brief History: 30-year-old 6 para 4 admit to labor and delivery for induction of labor at 37 weeks. Patient has a history intrauterine growth restriction with this . Baby has been consistently growing in the 6 percentile. In the last visit PATRICIA was less than 8. Patient also has had complaints of itching palms of hands and feet. Liver enzymes were normal. Bile acids are pending. Patient was started on ursodiol 300 twice daily. History of positive RPR with this . In August the titer was 1-26. Patient received 3 doses of Bicillin 2.4 weekly. 3-month repeat RPR the titer came down 1-2 with tPA positive. Partner was treated per as well per patient patient has been followed at [facility] with Doppler studies and biweekly NST BPP patient had poor compliance with weekly MFM visits and OB checks as well. Denies social habits at this time. Patient's not had several surgeries. She has no chronic illness. Patient is A+, antibody screen negative, rubella immune, hepatitis B negative HIV negative hep C negative. Her U tox was positive for marijuana. 1 hour was normal. And GBS negative. Last. June 26, 2024. Estimated due date April 02, 2025. Patient had a 13-week ultrasound in September that confirmed dates. Anatomy scans showed normal anatomy Peripartum Data Delivery Method: Normal Vaginal Delivery Episiotomy Description: None Laceration Description: no complications: none Time Spent with Patient Time attestation: Total time spent providing and/or coordinating discharge services: Exam Vital Signs Temp Pulse Resp BP Pulse Ox O2 Del Method 98.4 F 67 16 106/66 98 Room Air 03/17/25 03:45 03/17/25 03:45 03/17/25 03:45 03/17/25 03:45 03/17/25 03:45 03/17/25 03:45 Discharge Plan Plan Patient Disposition: HOME (Self Care) Patient condition on transfer: Stable Prescriptions/Referrals Prescriptions/Med Rec: No Action ursodiol 200 mg capsule 200 mg PO BID Qty: 30 1RF PNV cmb#95-ferrous fumarate-FA [] 28 mg iron- 800 mcg Tablet 1 tab PO QDAY Referrals: No Primary/Family,Physician [Primary Care Provider] - Patient/Caregiver Discharge Instructions Meds to Beds: No Discharge Activity: resume usual activities Print Language: British Activity Restrictions/Additional Instructions: Discharge home with baby. Okay to board until RPR is back. Patient will continue vitamins and iron. Okay to take Tylenol ibuprofen for pain. Discussed danger signs symptoms and ER precautions. I discussed signs symptoms of infection. Return in 3 weeks visit Stand Alone Forms: Shawna Award Info., Patient Portal Info Letter Discharge Order Discharge Orders: Discharge (Routine); Ordered 03/17/25 Ordered By: Elizabeth Jennings Planned Discharge Date 03/17/25
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
[2025-03-20 18:24] LABS: Chlamydia trachomatis PCR Negative (Not Detect); Neisseria Gonorrhoeae DNA PCR Negative (Not Detect); Trichomonas Negative (Negative)
== END 2025-03-17 17:53 | disposition home or self-care (01) | DRG 560 ==
LOC: S4SX 11:02 → S4NX 03-16 06:54 → S4SX 03-17 05:50
PROVIDERS: Admitting Provider Advanced Practice Midwife; Visit Provider Advanced Practice Midwife
DX: O70.0 First degree perineal laceration during delivery (principal); Z37.0 Single live birth; Z3A.37 37 weeks gestation of pregnancy
CPT/HCPCS: 36415; 59025; 59409; 76815; 80307; 81514; 84112; 85025; 86780; 86850; 86900; 86901; 86923; 87491; 87591; 87661; 94762; J2590; J2795; J3010; J3490; J7120; S0191; A9270